=== PATIENT | male | born 1965 | race Caucasian/White ===

== ENCOUNTER 2018-12-23 13:17 | Emergency (ER) | payer MEDICAID ==
[2018-12-23] MEDS ORDERED: Meclizine 25 MG Tab PO ONE (14:03)
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
[2018-12-23 14:40] LABS: HEMOGLOBIN A1C 7.9 % (4.5-6.2)
== END 2018-12-23 15:17 | disposition home or self-care (01) ==
LOC: FB.ED 13:17
DX: R42 Dizziness and giddiness (principal); E78.00 Pure hypercholesterolemia, unspecified; E11.9 Type 2 diabetes mellitus without complications; Z88.5 Allergy status to narcotic agent; Z88.0 Allergy status to penicillin; Z79.899 Other long term (current) drug therapy; Z79.84 Long term (current) use of oral hypoglycemic drugs
CPT/HCPCS: 36415; 80048; 81001; 82962; 83036; 85025; 99284; A9270

== ENCOUNTER 2021-05-14 10:14 | Emergency (ER) | payer MEDICAID ==
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
== END 2021-05-14 12:03 | disposition home or self-care (01) ==
LOC: FB.ED 10:14
DX: J20.9 Acute bronchitis, unspecified (principal); E78.00 Pure hypercholesterolemia, unspecified; E11.9 Type 2 diabetes mellitus without complications; F17.210 Nicotine dependence, cigarettes, uncomplicated; Z88.5 Allergy status to narcotic agent; Z88.0 Allergy status to penicillin; Z79.84 Long term (current) use of oral hypoglycemic drugs; Z79.899 Other long term (current) drug therapy
CPT/HCPCS: 99283

== ENCOUNTER 2022-04-07 06:01 | Day surgery (SDC) | payer MEDICAID ==
[2022-04-07] MEDS ORDERED: Midazolam 1 MG/ML 2 ML SDV IV ONE (06:02)
[2022-04-07] MEDS ORDERED: Propofol 200 MG/20 ML SDV IV ONE (06:02)
[2022-04-07] MEDS ORDERED: Lactated Ringers 1,000 ML IV SCH (06:15)
[2022-04-07] MEDS ORDERED: Sodium Chloride 0.9% 10 ML Syringe FLUSH PRN (06:15)
== END 2022-04-07 08:55 | disposition home or self-care (01) ==
LOC: FB.SDS 06:01
PROVIDERS: ATTEND Surgery
DX: K63.5 Polyp of colon (principal); R19.5 Other fecal abnormalities; R42 Dizziness and giddiness; E66.9 Obesity, unspecified; M19.90 Unspecified osteoarthritis, unspecified site; E11.9 Type 2 diabetes mellitus without complications; Z68.33 Body mass index [BMI] 33.0-33.9, adult; Z88.0 Allergy status to penicillin; Z79.899 Other long term (current) drug therapy; Z98.890 Other specified postprocedural states; Z88.5 Allergy status to narcotic agent; Z79.84 Long term (current) use of oral hypoglycemic drugs; Z79.82 Long term (current) use of aspirin
CPT/HCPCS: 00811-QZ; 82947; 88305; J2250; J2704; J7120